=== PATIENT | female | born 1990 | race African-American/Black ===

== ENCOUNTER 2018-05-26 09:31 | Emergency (ER) | payer OTHER ==
[2018-05-26 09:39] VITALS: TEMP 98.5; BMI 36.1
--- NOTE | 2018-05-26 10:39 | PDOC ---
History of Present Illness - General Chief Complaint: Pain Stated Complaint: SPOTTING (16 WEEKS ) Time Seen by Provider: 05/26/18 10:14 History Source: Patient Exam Limitations: No Limitations - History of Present Illness Travel History: No Initial Comments: 05/26/18 10:42 28-year-old female presents to the emergency department with vaginal spotting upon wiping this morning after urinating. Patient with history of spontaneous miscarriage at 21 weeks 7 years ago. Patient states as far by Dr. Haywood then and has had normal ultrasounds vital signs but was recently diagnosed with the UTI currently on antibiotics for the past 3 days. Patient has no other complaints at this time including back pain, abdominal pain nausea , weakness or dizziness. Timing/Duration: reports: constant Aggravating Factors: improves with: None Alleviating Factors: improves with: None Past History - Travel Traveled outside of the country in the last 30 days: No - Past Medical History Allergies/Adverse Reactions: Allergies Allergy/AdvReac Type Severity Reaction Status Date / Time No Known Allergies Allergy Verified 05/26/18 09:35 Home Medications: Ambulatory Orders Albuterol Sulfate Inhaler - [Ventolin Hfa Inhaler -] 2 inh PO Q4H PRN 05/26/18 Fluticasone Propionate [Flovent Diskus] 110 mcg IH BID PRN 05/26/18 Insulin Lispro Protamin/Lispro [Humalog Mix 50-50 Kwikpen] 6 unit SQ AC Nitrofurantoin Monohyd/M-Cryst [Macrobid -] 100 mg PO BID 05/26/18 Asthma: Yes COPD: No Diabetes: Yes HTN: No - Suicide/Smoking/Psychosocial Hx Smoking History: Never smoked Patient Lives Alone: No Lives with/in: spouse/SO Review of Systems - Review of Systems Able to Perform ROS?: No Constitutional: No: Symptoms Reported HEENTM: No: Symptoms Reported Respiratory: No: Symptoms reported Cardiac (ROS): No: Symptoms Reported ABD/GI: No: Symptoms Reported : Yes: Discharge (vaginal bleeding) Integumentary: No: Symptoms Reported Neurological: No: Symptoms reported Endocrine: No: Symptoms Reported Hematologic/Lymphatic: No: Symptoms Reported *Physical Exam - Vital Signs Last Vital Signs Temp Pulse Resp BP Pulse Ox 98.5 F 107 H 16 149/96 100 05/26/18 09:35 05/26/18 10:25 05/26/18 09:35 05/26/18 10:25 05/26/18 09:35 - Physical Exam General Appearance: Yes: Nourished, Appropriately Dressed. No: Apparent Distress HEENT: positive: EOMI, RIANNA. negative: Pale Conjunctivae Neck: positive: Normal Thyroid, Supple Respiratory/Chest: positive: Lungs Clear, Normal Breath Sounds. negative: Respiratory Distress, Accessory Muscle Use Cardiovascular: positive: Regular Rhythm, Tachycardia (107 on pulse oximetry probe). negative: Murmur Female Pelvic Exam: positive: cervical os closed, vaginal bleeding (minimal brownish red/pink in vault and from closed os). negative: CMT Gastrointestinal/Abdominal: positive: Soft. negative: Tenderness Musculoskeletal: negative: CVA Tenderness Extremity: positive: Normal Capillary Refill Integumentary: positive: Normal Color, Warm, Moist Neurologic: positive: Motor Strength 5/5 (ambulatory) ED Treatment Course - LABORATORY CBC & Chemistry Diagram: 05/26/18 10:50 05/26/18 10:50 - RADIOLOGY Radiology Studies Ordered: Category Date Time Status US(SINGLE) [US] Stat Ultrasound 05/26/18 10:21 Ordered Medical Decision Making - Medical Decision Making 05/26/18 10:43 Patient with vaginal spotting since this morning. Patient with history of spontaneous miscarriage at 21 weeks. Patient exam with closed os and minimal blood noted in the vault. Patient concerning for miscarriage. Patient also with slightly elevated blood pressure and borderline tachycardia. Patient ordered for labs, ultrasound,and urine. 05/26/18 13:10 Laboratory Tests 05/26/18 10:50 Blood Type O POSITIVE Antibody Screen Negative 05/26/18 13:11 Laboratory Tests 05/26/18 05/26/18 05/26/18 10:50 10:50 10:50 WBC 9.0 Hgb 11.0 Hct 33.9 Plt Count 286 Neutrophils % 60.7 PT with INR 11.30 INR 1.00 Sodium Potassium Chloride Carbon Dioxide Anion Gap BUN Creatinine Creat Clearance w eGFR Random Glucose Calcium Total Bilirubin AST ALT Alkaline Phosphatase Total Protein Albumin Urine Ketones 1+ H Urine Blood 3+ H Urine Nitrite Negative Ur Leukocyte Esterase Negative Urine WBC (Auto) 1 Urine RBC (Auto) 10 05/26/18 10:50 WBC Hgb Hct Plt Count Neutrophils % PT with INR INR Sodium 135 L Potassium 4.0 Chloride 107 Carbon Dioxide 22 Anion Gap 6 L BUN 7 Creatinine 0.7 Creat Clearance w eGFR > 60 Random Glucose 147 H Calcium 9.2 Total Bilirubin 0.1 L AST 32 ALT 43 Alkaline Phosphatase 44 L Total Protein 6.8 Albumin 3.6 Urine Ketones Urine Blood Urine Nitrite Ur Leukocyte Esterase Urine WBC (Auto) Urine RBC (Auto) Ultrasound shows a single intrauterine gestation identified by ultrasound measurements of 16 weeks 4 days with a heart rate of 1 50 bpm. The fetus is invariable lie with an anterior placenta. Is a questionable heterogenous region of the placenta measuring 4.2 x 3.0 x 3.4 but this can be mimicked by uterine contraction which is observed by the sonograph for. Recommend clinical correlation and short-term monitoring. Patient will be discharged home *DC/Admit/Observation/Transfer Diagnosis at time of Disposition: Vaginal bleeding in - Discharge Dispostion Disposition: HOME Condition at time of disposition: Good - Referrals Referrals: Franco Stephens [Primary Care Provider] - Kaylynn Gandhi MD [Staff Physician] - - Patient Instructions Printed Discharge Instructions: DI for Vaginal Bleeding During Additional Instructions: At this time I recommend to follow-up with the RADIO F[facility]QUENCY TECHNICIAN and taking a copy of the ultrasound with you. May take Tylenol if you develop any cramping. Otherwise continue with your normal activity and may return to the ED any given time if your symptoms worsen. - Post Discharge Activity
[2018-05-26 11:04] LABS: BASO % 0.6 % (0-2.0); EOS % 4.2 % (0-4.5); HEMATOCRIT 33.9 % (32.4-45.2); LYMPH % 28.3 % (8-40); MCH 27.3 pg (25.7-33.7); MCHC 32.5 g/dl (32.0-36.0); MEAN PLT VOLUME 8.9 fl (7.5-11.1); MONO % 6.2 % (3.8-10.2); NEUT % 60.7 % (42.8-82.8); PLATELET COUNT 286 K/MM3 (134-434); RBC 4.03 M/mm3 (3.60-5.2); RDW 13.9 % (11.6-15.6)
[2018-05-26 11:17] LABS: PROTHROMBIN TIME (PATIENT) 11.3 SEC (9.7-13.0)
[2018-05-26 11:28] LABS: ALBUMIN 3.6 g/dl (3.4-5.0); ANION GAP 6 MMOL/L (8-16); BILIRUBIN,TOTAL 0.1 mg/dL (0.2-1.0); BLOOD UREA NITROGEN 7 mg/dL (7-18); CALCIUM 9.2 mg/dL (8.5-10.1); CHLORIDE 107 mmol/L (98-107); CO2 22 mmol/L (21-32); CREATININE 0.7 mg/dL (0.55-1.02); GLUCOSE,RANDOM 147 mg/dL (74-106); SGOT/AST 32 U/L (15-37); SGPT/ALT 43 U/L (12-78); SODIUM 135 mmol/L (136-145); TOT PROT 6.8 g/dl (6.4-8.2)
[2018-05-26 11:30] LABS: ALK PHOS 44 U/L (45-117)
[2018-05-26 11:40] LABS: URINE APPEARANCE CLEAR; URINE BILIRUBIN NEGATIVE (<2.0 mg/dL); URINE COLOR YELLOW; URINE GLUCOSE (UA) NEGATIVE (NEGATIVE); URINE KETONE 1+ (NEGATIVE); URINE LEUK ESTERASE NEGATIVE (NEGATIVE); URINE NITRITE NEGATIVE (NEGATIVE); URINE PROTEIN NEGATIVE (NEGATIVE); URINE UROBILINOGEN NEGATIVE mg/dL (0.2-1.0)
[2018-05-26 11:47] LABS: EPI CELLS RARE /HPF (FEW); URINE HYALINE CAST 2 /lpf; URINE MUCUS RARE
[2018-05-26 11:48] LABS: URINE BACTERIA FEW /hpf (NONE SEEN)
[2018-05-26 14:20] VITALS: BP 138/93; PULSE 85
--- NOTE | 2018-05-26 18:50 | EKG ---
Test Reason : Blood Pressure : / mmHG Vent. Rate : 098 BPM Atrial Rate : 098 BPM P-R Int : 148 ms QRS Dur : 080 ms QT Int : 358 ms P-R-T Axes : 049 016 015 degrees QTc Int : 457 ms POOR DATA QUALITY, INTERPRETATION MAY BE ADVERSELY AFFECTED NORMAL SINUS RHYTHM NORMAL ECG NO PREVIOUS ECGS AVAILABLE Confirmed by NANO OLIVARES MD ([id number]) on 05/26/2018 6:50:15 PM Referred By: Confirmed By:NANO OLIVARES MD
== END 2018-05-26 13:35 | disposition home or self-care (01) ==
LOC: JER 09:31
DX: O26.892 Other specified pregnancy related conditions, second trimester (principal); O46.92 Antepartum hemorrhage, unspecified, second trimester; O24.912 Unspecified diabetes mellitus in pregnancy, second trimester; Z3A.16 16 weeks gestation of pregnancy; Z79.4 Long term (current) use of insulin
CPT/HCPCS: 36415; 76801-TC; 80053; 81003; 81015; 85025; 85610; 86850; 86900; 86901; 87086; 93005; 93010; 99283-25

== ENCOUNTER 2018-07-30 20:02 | Emergency (ER) | payer OTHER ==
[2018-07-30 20:09] VITALS: BMI 32.4
--- NOTE | 2018-07-30 21:12 | PDOC ---
History of Present Illness - General Chief Complaint: Pain Stated Complaint: 25 WEEKS , PAIN Time Seen by Provider: 07/30/18 20:45 History Source: Patient Exam Limitations: No Limitations - History of Present Illness Initial Comments: 07/30/18 21:08 Pt is a 28yo f G2A1 25 weeks PMH of DM, asthma presenting to ED with complaints of L sided pain under the breast that started at 4pm today. Pt said she was taking a nap when she felt a sharp pain in the L chest followed by a burning in the throat to the stomach. Pt says pain is intermittent, only feels it when she lays down, takes in deep breaths, coughs or sneezes. She never had this kind of pain before. She denies fever, chills, cough, SOB, lightheadedness , calf pain/swelling, recent travel, recent surgeries. She went to L+D today and was cleared. She was told that she has a high risk due to her diabetes and blood pressure getting high, so she was placed on labetelol along with her current medication of metformin. Past History - Past Medical History Allergies/Adverse Reactions: Allergies Allergy/AdvReac Type Severity Reaction Status Date / Time No Known Allergies Allergy Verified 07/30/18 20:10 Home Medications: Ambulatory Orders Albuterol Sulfate Inhaler - [Ventolin Hfa Inhaler -] 2 inh PO Q4H PRN 05/26/18 Fluticasone Propionate [Flovent Diskus] 110 mcg IH BID PRN 05/26/18 Insulin Lispro Protamin/Lispro [Humalog Mix 50-50 Kwikpen] 18 unit SQ TID Labetalol HCl [Normodyne -] 200 mg PO DAILY 07/30/18 Anemia: Yes Asthma: Yes COPD: No Diabetes: Yes HTN: Yes - Suicide/Smoking/Psychosocial Hx Smoking History: Never smoked *Physical Exam - Vital Signs Last Vital Signs Temp Pulse Resp BP Pulse Ox 98.5 F 91 H 18 119/71 100 07/30/18 20:05 07/30/18 20:05 07/30/18 20:05 07/30/18 20:05 07/30/18 20:05 ED Treatment Course - LABORATORY CBC & Chemistry Diagram: 07/30/18 22:22 07/30/18 22:22 *DC/Admit/Observation/Transfer Diagnosis at time of Disposition: Chest pain Qualifiers: Chest pain type: unspecified Qualified Code(s): R07.9 - Chest pain, unspecified - Discharge Dispostion Disposition: HOME Condition at time of disposition: Good Decision to Admit order: No - Referrals Referrals: Franco Stephens [Primary Care Provider] - Kaylynn Gandhi MD [Staff Physician] - - Patient Instructions Printed Discharge Instructions: DI for Chest Pain, DI for Atypical Chest Pain Additional Instructions: You were seen here today for chest pain. Your tests were normal. You can take Tylenol for pain as directed. Please keep your appointment with Dr. Gandhi. I also advise you to see your primary care doctor as well. Come back to the emergency room if: pain gets worse, you have difficulty breathing, or if any new concerning symptom develops. Thank you - Post Discharge Activity
[2018-07-30] MEDS ORDERED: ACETAMINOPHEN 500 MG TABLET (FP) PO ONE (21:15)
[2018-07-30 22:31] LABS: EOS % 3.5 % (0-4.5); HEMATOCRIT 31.4 % (32.4-45.2); HEMOGLOBIN 10.4 GM/dL (10.7-15.3); LYMPH % 32.1 % (8-40); MCH 28.4 pg (25.7-33.7); MCHC 33.1 g/dl (32.0-36.0); MEAN CELL VOLUME 85.8 fl (80-96); MEAN PLT VOLUME 9.5 fl (7.5-11.1); MONO % 5.8 % (3.8-10.2); NEUT % 57.6 % (42.8-82.8); PLATELET COUNT 284 K/MM3 (134-434); RBC 3.66 M/mm3 (3.60-5.2); RDW 14.6 % (11.6-15.6); WHITE BLOOD COUNT 9.4 K/mm3 (4.0-10.0)
[2018-07-30 22:49] LABS: URINE APPEARANCE SLCLOUDY; URINE BILIRUBIN NEGATIVE (<2.0 mg/dL); URINE COLOR YELLOW; URINE GLUCOSE (UA) 1+ (NEGATIVE); URINE KETONE NEGATIVE (NEGATIVE); URINE LEUK ESTERASE NEGATIVE (NEGATIVE); URINE NITRITE NEGATIVE (NEGATIVE); URINE PROTEIN NEGATIVE (NEGATIVE); URINE UROBILINOGEN NEGATIVE mg/dL (0.2-1.0)
[2018-07-30] MEDS ORDERED: ACETAMINOPHEN 325 MG TABLET (FP) ONE (22:49)
[2018-07-30 22:57] VITALS: BP 115/68; PULSE 86; TEMP 98.1
[2018-07-30 22:57] LABS: ALBUMIN 3.2 g/dl (3.4-5.0); ALK PHOS 70 U/L (45-117); ANION GAP 8 MMOL/L (8-16); BILIRUBIN,TOTAL 0.1 mg/dL (0.2-1); BLOOD UREA NITROGEN 8 mg/dL (7-18); CALCIUM 9.2 mg/dL (8.5-10.1); CHLORIDE 108 mmol/L (98-107); CO2 22 mmol/L (21-32); CREATININE 0.6 mg/dL (0.55-1.3); GLUCOSE,RANDOM 78 mg/dL (74-106); MAGNESIUM 2.1 mg/dL (1.8-2.4); PHOSPHOROUS 5.4 mg/dL (2.5-4.9); POTASSIUM 4.1 mmol/L (3.5-5.1); SGOT/AST 42 U/L (15-37); SGPT/ALT 53 U/L (13-61); SODIUM 138 mmol/L (136-145); TOT PROT 6.3 g/dl (6.4-8.2)
--- NOTE | 2018-07-30 23:18 | PDOC ---
Attending Attestation - HPI HPI: 07/30/18 23:28 The patient is a year old female, A1, 25 weeks , with a significant past medical history of diabetes and asthma, who presents to the emergency department with intermittent pain under her left breast with lying flat, coughing, and taking deep breaths. She denies pain while at rest. She states she was told she was prehypertensive by Dr. Villa who started the patient on labetalol. She states she was sent to the ED from L&D after monitoring for further evaluation. She reports her first was a miscarriage in the second trimester secondary to "an infection in the sac". The patient denies shortness of breath, headache and dizziness. The patient denies fever, chills, nausea, vomit, diarrhea and constipation. The patient denies dysuria, frequency, urgency and hematuria. Allergies: NKDA - Physicial Exam PE: 07/30/18 23:29 GENERAL: Well-appearing, well-nourished. No apparent distress. HEENT: Normocephalic, atraumatic. PERRL, EOM intact. CARDIOVASCULAR: Normal S1, S2. Regular rate and rhythm. NECK No Bruits. No JVD. No CLAD. PULMONARY: Clear to auscultation bilaterally. ABDOMEN: Gravid. Soft, non-distended, non-tender. EXTREMITIES: Normal ROM in all four extremities. No gross deformities. SKIN: Warm, dry. No rash NEUROLOGICAL: No focal neurological deficits. - Medical Decision Making 07/30/18 23:29 Documentation prepared by Marisela Mancia, acting as medical territory manager for Kristy Romero MD <Marisela Mancia - Last Filed: 07/30/18 23:33> - Resident Resident Name: Ada Bergeron - ED Attending Attestation I have performed the following: I have examined & evaluated the patient, The case was reviewed & discussed with the resident, I agree w/resident's findings & plan, Exceptions are as noted - Medical Decision Making 07/30/18 23:35 28-year-old female who is 25 weeks , was sent down from L&D after she had monitoring. She was seen by Dr. Ayla Sosa and monitoring was unremarkable. Her urine is negative CBC and chemistries are unremarkable. The patient is normotensive and states she is taking her high blood pressure medications. Troponin was negative. EKG is normal sinus rhythm at 91 bpm, with a normal QTC. There is no evidence of right heart strain or ischemia Patient states that if she coughs or sneezes, she has some left sided anterior rib cage pain. Otherwise, she is asymptomatic 07/30/18 23:43 plan pt has an appt w Dr Villa on 08/10/18 <Kristy Romero - Last Filed: 07/30/18 23:43>
--- NOTE | 2018-07-31 16:15 | EKG ---
Test Reason : Blood Pressure : / mmHG Vent. Rate : 091 BPM Atrial Rate : 091 BPM P-R Int : 138 ms QRS Dur : 082 ms QT Int : 348 ms P-R-T Axes : 032 022 025 degrees QTc Int : 428 ms NORMAL SINUS RHYTHM NORMAL ECG WHEN COMPARED WITH ECG OF 26-MAY-2018 10:59, NO SIGNIFICANT CHANGE WAS FOUND Confirmed by MD MARY, SABINO ([id number]) on 07/31/2018 4:15:15 PM Referred By: Confirmed By:SABINO HERNANDEZ MD
== END 2018-07-31 01:00 | disposition home or self-care (01) ==
LOC: JER 20:02
DX: O26.892 Other specified pregnancy related conditions, second trimester (principal); R07.9 Chest pain, unspecified; O24.012 Pre-existing type 1 diabetes mellitus, in pregnancy, second trimester; E10.9 Type 1 diabetes mellitus without complications; Z79.4 Long term (current) use of insulin; O16.2 Unspecified maternal hypertension, second trimester; Z3A.25 25 weeks gestation of pregnancy; Z87.09 Personal history of other diseases of the respiratory system
CPT/HCPCS: 36415; 80053; 81003; 83735; 84100; 84484; 85025; 87086; 93005; 93010; 99284-25

== ENCOUNTER 2018-10-13 16:32 | Emergency (ER) | payer OTHER ==
[2018-10-13 16:41] VITALS: BMI 37.8
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
[2018-10-13] MEDS ORDERED: SODIUM CHLORIDE 0.9% 500 ML INFUS.BAG IV ONE (18:50)
[2018-10-13 20:43] VITALS: BP 143/92; PULSE 88; TEMP 98.6
== END 2018-10-13 21:20 | disposition home or self-care (01) ==
LOC: JER 16:32 → JERFT 16:32 → JER 21:20
DX: O26.893 Other specified pregnancy related conditions, third trimester (principal); O99.513 Diseases of the respiratory system complicating pregnancy, third trimester; J70.5 Respiratory conditions due to smoke inhalation; J45.909 Unspecified asthma, uncomplicated; O24.913 Unspecified diabetes mellitus in pregnancy, third trimester; Z79.4 Long term (current) use of insulin; O99.013 Anemia complicating pregnancy, third trimester; O16.3 Unspecified maternal hypertension, third trimester; Z3A.36 36 weeks gestation of pregnancy; X02.0XXA Exposure to flames in controlled fire in building or structure, initial encounter; Y93.89 Activity, other specified; Y92.038 Other place in apartment as the place of occurrence of the external cause; Y99.8 Other external cause status
CPT/HCPCS: 82375; 82962; 99281-25

== ENCOUNTER 2018-11-01 09:30 | Inpatient (IN) | payer OTHER ==
[2018-11-01 10:55] VITALS: BMI 38.5
--- NOTE | 2018-11-01 11:34 | HP ---
Admitting History and Physical - Admission Chief Complaint: 39 weeks gestation / Pre-gestational diabetes History of Present Illness: 28 yo @ 39 weeks gestation, with pre-gestational diabetes, on Insulin, admitted for cervidil induction. EDC : 11/08/18 History Source: Patient Limitations to Obtaining History: No Limitations - Past Medical History ...: Yes ...: 2 ...Para: 0 - Past Surgical History Past Surgical History: Yes: None - Smoking History Smoking history: Never smoked - Alcohol/Substance Use Hx Alcohol Use: No - Social History Usual Living Arrangement: Yes: Alone History of Recent Travel: No Home Medications - Allergies Allergies/Adverse Reactions: Allergies Allergy/AdvReac Type Severity Reaction Status Date / Time No Known Allergies Allergy Verified 10/03/18 16:03 - Home Medications Home Medications: Ambulatory Orders Albuterol Sulfate Inhaler - [Ventolin Hfa Inhaler -] 2 inh PO Q4H PRN 05/26/18 Fluticasone Propionate [Flovent Diskus] 110 mcg IH BID PRN 05/26/18 Labetalol HCl [Normodyne -] 200 mg PO DAILY 07/30/18 Ferrous Sulfate [Feosol] 325 mg PO BID 10/03/18 Pnv No.95/Ferrous Fum/Folic AC [ Vitamin Tablet] 1 each PO DAILY Insulin NPH Human Isophane [Humulin N] 10 unit SQ BID 11/01/18 Family Disease History - Family Disease History Family History: Unremarkable Review of Systems - Review of Systems Constitutional: reports: No Symptoms Eyes: reports: No Symptoms HENT: reports: No Symptoms Neck: reports: No Symptoms Cardiovascular: reports: No Symptoms Respiratory: reports: No Symptoms Gastrointestinal: reports: No Symptoms Genitourinary: reports: No Symptoms Breasts: reports: No Symptoms Reported Musculoskeletal: reports: No Symptoms Integumentary: reports: No Symptoms Neurological: reports: No Symptoms Endocrine: reports: No Symptoms Hematology/Lymphatic: reports: No Symptoms Psychiatric: reports: No Symptoms Pain Intensity: 0 Physical Examination Vital Signs: Vital Signs Temperature 97.6 F 11/01/18 11:00 Pulse Rate 84 11/01/18 11:00 Respiratory Rate 20 11/01/18 11:00 Blood Pressure 136/75 11/01/18 11:00 O2 Sat by Pulse Oximetry (%) Constitutional: Yes: Well Nourished Eyes: Yes: Conjunctiva Clear HENT: Yes: Atraumatic Neck: Yes: Supple Cardiovascular: Yes: Regular Rate and Rhythm Respiratory: Yes: Regular Gastrointestinal: Yes: Normal Bowel Sounds Musculoskeletal: Yes: WNL Neurological: Yes: Alert, Oriented ...Motor Strength: WNL Psychiatric: Yes: Alert, Oriented Problem List - Problems (1) 39 weeks gestation of Code(s): Z3A.39 - 39 WEEKS GESTATION OF (2) Gestational diabetes mellitus (GDM) affecting Code(s): O24.419 - GESTATIONAL DIABETES MELLITUS IN , UNSP CONTROL Assessment/Plan 39 weeks gestation Pre-Gestation diabetes Admit for cervidil induction
[2018-11-01 11:40] LABS: INR 0.94 (0.83-1.09); PROTHROMBIN TIME (PATIENT) 11.1 SEC (9.7-13.0)
[2018-11-01 11:43] LABS: ACTIVATED PTT 29.8 SECONDS (25.2-36.5)
[2018-11-01 11:51] LABS: BASO % 0.6 % (0-2.0); LYMPH % 37.8 % (8-40); MCH 29.1 pg (25.7-33.7); MCHC 33.3 g/dl (32.0-36.0); MEAN CELL VOLUME 87.3 fl (80-96); MEAN PLT VOLUME 10.3 fl (7.5-11.1); MONO % 5.5 % (3.8-10.2); NEUT % 53.1 % (42.8-82.8); PLATELET COUNT 196 K/MM3 (134-434); RBC 3.78 M/mm3 (3.60-5.2); RDW 15.4 % (11.6-15.6); WHITE BLOOD COUNT 6.7 K/mm3 (4.0-10.0)
[2018-11-01 11:57] LABS: ANION GAP 11 MMOL/L (8-16); BLOOD UREA NITROGEN 8 mg/dL (7-18); CALCIUM 8.8 mg/dL (8.5-10.1); CHLORIDE 107 mmol/L (98-107); CO2 22 mmol/L (21-32); CREATININE 0.8 mg/dL (0.55-1.3); GLUCOSE,RANDOM 88 mg/dL (74-106); POTASSIUM 3.8 mmol/L (3.5-5.1); SODIUM 141 mmol/L (136-145)
[2018-11-01] MEDS ORDERED: DINOPROSTONE 10 MG VAGINAL SUPPOSITORY VG ONE (15:29)
[2018-11-01] MEDS ORDERED: ELECTROLYTE-148 SOLN 1,000 ML IV SCH ×2 (15:30→16:45)
[2018-11-01] MEDS ORDERED: INSULIN REGULAR HUMAN 100 UNITS/ML *VIAL SQ ONE (21:41)
[2018-11-01] MEDS ORDERED: BUTORPHANOL TARTRATE 2 MG/ML VIAL IVPUSH PRN (21:46)
[2018-11-01] MEDS ORDERED: PROMETHAZINE HCL 25 MG/1 ML VIAL IVPUSH PRN (21:47)
[2018-11-02] MEDS: DEXTROSE 5%-LACTATED RINGERS 1,000 ML IV SCH (02:00)
[2018-11-02] MEDS ORDERED: INSULIN (NOVOLOG) ASPART 100 UNITS/ML 10ML VIAL SQ SCH (07:00)
[2018-11-02] MEDS ORDERED: OXYTOCIN 20 UNITS in 0.9% NS 20 UNIT/1,000 ML INFUS.BAG IV ONE (07:11)
[2018-11-02] MEDS ORDERED: LABETALOL HCL 200 MG TABLET (FP) ONE (07:33)
[2018-11-02] MEDS ORDERED: LABETALOL HCL 200 MG TABLET (FP) PO ONE (08:00)
[2018-11-02] MEDS: HUMULIN R U SQ SCH (08:00)
[2018-11-02] MEDS ORDERED: DINOPROSTONE 10 MG VAGINAL SUPPOSITORY VG ONE (08:15)
[2018-11-02] MEDS ORDERED: OXYTOCIN 30 UNITS in 0.9% NS 30 UNIT/500 ML INFUS.BAG IVPB SCH (22:45)
[2018-11-03] MEDS: DEXTROSE 5%-LACTATED RINGERS 1,000 ML IV SCH (04:00)
[2018-11-03] MEDS: HUMULIN N U SQ SCH ×2 (07:38→22:30)
[2018-11-03] MEDS: HUMULIN R U SQ SCH ×3 (07:38→22:32)
--- NOTE | 2018-11-03 11:46 | PN ---
Progress Note (short form) - Note Progress Note: Patient is lying comfortably in bed. She's status post Cervidil induction and is now on Pitocin augmentation. She denies any contractions pain. FHR : Reassuring Hobson : + regular contractions Ve : Exam unchanged A/P 39 weeks gestation Pre gestational diabetes PIH Diabetic diet for breakfast Continue Insulin and Labetalol Discussion with patient about mode of delivery. Patient wants to wait longer before proceeding to Continue close monitoring Problem List - Problems (1) 39 weeks gestation of Code(s): Z3A.39 - 39 WEEKS GESTATION OF (2) Gestational diabetes mellitus (GDM) affecting Code(s): O24.419 - GESTATIONAL DIABETES MELLITUS IN , UNSP CONTROL
--- NOTE | 2018-11-03 11:48 | PN ---
Progress Note (short form) - Note Progress Note: Patient evaluated, doing well. Exam unchanged A second cervidil placed Re-evaluate in 12 hours or before if indicated Problem List - Problems (1) 39 weeks gestation of Code(s): Z3A.39 - 39 WEEKS GESTATION OF (2) Gestational diabetes mellitus (GDM) affecting Code(s): O24.419 - GESTATIONAL DIABETES MELLITUS IN , UNSP CONTROL
[2018-11-03] MEDS ORDERED: LABETALOL HCL 200 MG TABLET (FP) ONE (11:49)
[2018-11-03] MEDS ORDERED: LABETALOL HCL 100 MG TABLET (FP) PO ONE (12:00)
[2018-11-03] MEDS ORDERED: valACYclovir HCL 500 MG TABLET (FP) PO ONE (12:00)
--- NOTE | 2018-11-03 13:07 | PN ---
Progress Note (short form) - Note Progress Note: Patient evaluated, doing well. She's on Pitocin augmentation. Exam unchanged FHR : No accelerations, no decelerations Decision made for Consent signed Anesthesia to see patient Problem List - Problems (1) 39 weeks gestation of Code(s): Z3A.39 - 39 WEEKS GESTATION OF (2) Gestational diabetes mellitus (GDM) affecting Code(s): O24.419 - GESTATIONAL DIABETES MELLITUS IN , UNSP CONTROL
[2018-11-03] MEDS ORDERED: morphine SULFATE/Preservative Free 0.5 MG/ML (1cc Syringe) ONE (14:38)
[2018-11-03] MEDS ORDERED: ePHEDrine SULFATE 50 MG/1 ML AMPULE ONE (14:38)
[2018-11-03] MEDS ORDERED: ceFAZolin SODIUM 1 GM VIAL ONE (14:50)
[2018-11-03] MEDS ORDERED: OXYTOCIN 10 UNITS/ML VIAL ONE ×2 (14:59→16:26)
[2018-11-03] MEDS ORDERED: MINERAL OIL/PETROLATUM,WHITE 3.5 GM TUBE ONE (15:06)
[2018-11-03] MEDS ORDERED: METHYLERGONOVINE MALEATE 0.2 MG/1 ML AMP IM PRN (15:43)
[2018-11-03] MEDS ORDERED: diphenhydrAMINE HCL 25 MG CAPSULE (FP) PO PRN (15:44)
[2018-11-03] MEDS ORDERED: OXYTOCIN 20 UNITS in 0.9% NS 20 UNIT/1,000 ML INFUS.BAG IV SCH (15:45)
[2018-11-03] MEDS ORDERED: ELECTROLYTE-148 SOLN 1,000 ML IV SCH (15:45)
--- NOTE | 2018-11-03 15:48 | OP ---
Operative Note - Note: Operative Date: 11/03/18 Pre-Operative Diagnosis: Failed medical induction Operation: Primary Low Transverse Findings: Baby in vertex position Post-Operative Diagnosis: Same as Pre-op Surgeon: Kaylynn [facility] Worker: Ariel Devlin Anesthesia: Spinal Specimens Removed: Placenta Estimated Blood Loss (mls): 600
[2018-11-03] MEDS ORDERED: ONDANSETRON 4 MG/2 ML VIAL IVPUSH PRN (15:59)
[2018-11-03] MEDS ORDERED: ACETAMINOPHEN 1000 MG/100 ML VIAL (NON FORMULARY) IVPB PRN (18:05)
[2018-11-03] MEDS: IBUPROFEN 800 MG/8 ML IJ IVPB PRN (18:10)
[2018-11-03] MEDS: FERROUS SO4 325 MG TABLET (FP) PO SCH (22:30)
[2018-11-04] MEDS: IBUPROFEN 800 MG/8 ML IJ IVPB PRN (06:29)
[2018-11-04 06:47] LABS: BASO % 0.4 % (0-2.0); EOS % 1.2 % (0-4.5); HEMATOCRIT 31.5 % (32.4-45.2); HEMOGLOBIN 10.7 GM/dL (10.7-15.3); LYMPH % 22.2 % (8-40); MCH 29.4 pg (25.7-33.7); MCHC 33.9 g/dl (32.0-36.0); MEAN CELL VOLUME 86.6 fl (80-96); MEAN PLT VOLUME 9.9 fl (7.5-11.1); MONO % 7.7 % (3.8-10.2); NEUT % 68.5 % (42.8-82.8); PLATELET COUNT 183 K/MM3 (134-434); RBC 3.64 M/mm3 (3.60-5.2); RDW 15.7 % (11.6-15.6); WHITE BLOOD COUNT 8.3 K/mm3 (4.0-10.0)
[2018-11-04] MEDS: HUMULIN N U SQ SCH ×2 (07:08→22:49)
[2018-11-04] MEDS: HUMULIN R U SQ SCH ×3 (07:08→17:00)
--- NOTE | 2018-11-04 09:06 | PN ---
Progress Note (short form) - Note Progress Note: Anesthesiology Post-op 28 y.o. woman POD#1 s/p C/S under spinal anesthesia. She is sitting-up, nursing infant in NAD. She has no complaints except for some pain associated with surgery and itching. VSS, with BP still slightly elevated. BP meds are ordered. No h/a, able to move legs, +urine in [place]. 28 y.o. woman with HTN and otherwise stable post-op course. I d/w pt. use of cold compresses to alleviate pruritis. She also has Benadryl ordered. Continue management as per primary team.
[2018-11-04] MEDS: PRENATAL VITAMINS W/ FOLIC ACID TABLET (FP) PO SCH (09:46)
[2018-11-04] MEDS: LABETALOL HCL 200 MG TABLET (FP) PO SCH (09:47)
[2018-11-04] MEDS: FERROUS SO4 325 MG TABLET (FP) PO SCH ×2 (09:47→22:46)
[2018-11-04] MEDS: oxyCODONE HCL 5 MG TABLET PO PRN ×3 (09:48→18:38)
[2018-11-04] MEDS: IBUPROFEN 600 MG TABLET (FP) PO PRN ×2 (14:34→18:38)
[2018-11-04] MEDS: SIMETHICONE 80 MG TAB.CHEW (FP) PO PRN ×2 (14:36→18:39)
[2018-11-04] MEDS ORDERED: BISACODYL 10 MG SUPP.RECT RC PRN (15:43)
--- NOTE | 2018-11-04 16:18 | PN ---
Post Note - Post Date of Delivery: 11/03/18 Post Day: 1 Vital Signs: Vital Signs - 24 hr 11/03/18 11/03/18 11/03/18 16:30 16:45 17:00 Temperature Pulse Rate 74 87 82 Respiratory 20 20 22 H Rate Blood Pressure 130/66 133/54 L 143/79 O2 Sat by Pulse 100 100 100 Oximetry (%) 11/03/18 11/03/18 11/03/18 17:35 18:00 21:00 Temperature 97.3 F L 98.7 F Pulse Rate 83 77 Respiratory 18 20 18 Rate Blood Pressure 140/86 140/87 O2 Sat by Pulse Oximetry (%) 11/04/18 11/04/18 11/04/18 02:00 06:00 07:00 Temperature 99.3 F 99.3 F Pulse Rate 90 100 H Respiratory 18 18 18 Rate Blood Pressure 133/77 137/82 O2 Sat by Pulse Oximetry (%) 11/04/18 11/04/18 11/04/18 08:00 09:00 10:00 Temperature 98.7 F Pulse Rate 94 H Respiratory 18 18 18 Rate Blood Pressure 143/89 O2 Sat by Pulse Oximetry (%) 11/04/18 11/04/18 11/04/18 11:00 12:00 13:00 Temperature Pulse Rate Respiratory 18 18 18 Rate Blood Pressure O2 Sat by Pulse Oximetry (%) 11/04/18 14:00 Temperature 98.1 F Pulse Rate 96 H Respiratory 18 Rate Blood Pressure 127/84 O2 Sat by Pulse Oximetry (%) Labs: Laboratory Results - last 24 hr 11/03/18 11/03/18 11/03/18 16:20 18:32 22:28 WBC RBC Hgb Hct MCV MCH MCHC RDW Plt Count MPV Absolute Neuts (auto) Neutrophils % Lymphocytes % Monocytes % Eosinophils % Basophils % Nucleated RBC % POC Glucometer 55 94 85 11/04/18 11/04/18 11/04/18 02:49 05:15 06:21 WBC 8.3 RBC 3.64 Hgb 10.7 Hct 31.5 L MCV 86.6 MCH 29.4 MCHC 33.9 RDW 15.7 H Plt Count 183 MPV 9.9 Absolute Neuts (auto) 5.7 Neutrophils % 68.5 D Lymphocytes % 22.2 D Monocytes % 7.7 Eosinophils % 1.2 Basophils % 0.4 Nucleated RBC % 0 POC Glucometer 63 68 11/04/18 11/04/18 10:07 14:50 WBC RBC Hgb Hct MCV MCH MCHC RDW Plt Count MPV Absolute Neuts (auto) Neutrophils % Lymphocytes % Monocytes % Eosinophils % Basophils % Nucleated RBC % POC Glucometer 64 75 - Subjective Subjective: No Complaints - Objective Afebrile: No Breast: Not engorged Abdomen: Soft, Non-tender Uterus: Fundus firm Vagina: Scant lochia Extremities: Non-tender - Assessment/Plan (1) delivery delivered Assessment: Other (POD1 Stable) Plan: Routine Care
[2018-11-05] MEDS: oxyCODONE HCL 5 MG TABLET PO PRN ×4 (03:23→21:22)
[2018-11-05] MEDS: HUMULIN R U SQ SCH ×2 (07:00→11:29)
[2018-11-05] MEDS: HUMULIN N U SQ SCH (07:05)
[2018-11-05] MEDS ORDERED: ACETAMINOPHEN 325 MG TABLET (FP) PO PRN (08:12)
[2018-11-05] MEDS: IBUPROFEN 600 MG TABLET (FP) PO PRN ×3 (08:21→21:21)
[2018-11-05] MEDS: SIMETHICONE 80 MG TAB.CHEW (FP) PO PRN ×2 (08:25→15:03)
[2018-11-05] MEDS: FERROUS SO4 325 MG TABLET (FP) PO SCH ×2 (09:05→21:19)
[2018-11-05] MEDS: PRENATAL VITAMINS W/ FOLIC ACID TABLET (FP) PO SCH (09:05)
[2018-11-05] MEDS: LABETALOL HCL 200 MG TABLET (FP) PO SCH (09:06)
--- NOTE | 2018-11-05 10:40 | PN ---
Post Note - Post Date of Delivery: 11/03/18 Post Day: 2 Vital Signs: Vital Signs - 24 hr 11/04/18 11/04/18 11/04/18 11:00 12:00 13:00 Temperature Pulse Rate Respiratory 18 18 18 Rate Blood Pressure 11/04/18 11/04/18 11/04/18 14:00 15:00 16:00 Temperature 98.1 F Pulse Rate 96 H Respiratory 18 20 20 Rate Blood Pressure 127/84 11/04/18 11/04/18 11/04/18 17:00 18:00 18:20 Temperature 98.1 F Pulse Rate 96 H Respiratory 18 20 20 Rate Blood Pressure 139/88 11/04/18 11/05/18 11/05/18 21:00 02:00 06:00 Temperature 98.1 F Pulse Rate 87 84 91 H Respiratory 18 18 18 Rate Blood Pressure 137/77 140/73 136/81 11/05/18 08:45 Temperature 99.2 F Pulse Rate 89 Respiratory 20 Rate Blood Pressure 141/86 Labs: Laboratory Results - last 24 hr 11/04/18 11/04/18 11/04/18 14:50 18:08 22:42 POC Glucometer 75 129 95 11/05/18 11/05/18 11/05/18 02:23 06:17 10:15 POC Glucometer 71 95 141 - Subjective Subjective: No Complaints, Other (Pt examined sitting in chair) - Objective Afebrile: Yes Breast: Not engorged Abdomen: Soft, Non-tender Uterus: Fundus firm Vagina: Scant lochia Extremities: Non-tender - Assessment/Plan (1) delivery delivered Assessment: Other (POD 2 stable Glucose levels normal) Plan: Routine Care
[2018-11-06 08:47] LABS: BASO % 0.4 % (0-2.0); EOS % 3.6 % (0-4.5); HEMATOCRIT 27.8 % (32.4-45.2); HEMOGLOBIN 9.4 GM/dL (10.7-15.3); MCH 29.7 pg (25.7-33.7); MEAN CELL VOLUME 87.4 fl (80-96); MEAN PLT VOLUME 9.9 fl (7.5-11.1); PLATELET COUNT 194 K/MM3 (134-434); RBC 3.18 M/mm3 (3.60-5.2); RDW 15.4 % (11.6-15.6); WHITE BLOOD COUNT 7.7 K/mm3 (4.0-10.0)
[2018-11-06] MEDS: oxyCODONE HCL 5 MG TABLET PO PRN ×3 (08:53→23:30)
[2018-11-06] MEDS: IBUPROFEN 600 MG TABLET (FP) PO PRN ×3 (08:54→23:30)
[2018-11-06] MEDS: LABETALOL HCL 200 MG TABLET (FP) PO SCH (09:00)
[2018-11-06] MEDS: FERROUS SO4 325 MG TABLET (FP) PO SCH ×2 (09:00→22:01)
[2018-11-06] MEDS: PRENATAL VITAMINS W/ FOLIC ACID TABLET (FP) PO SCH (09:00)
--- NOTE | 2018-11-06 09:47 | OP ---
DATE OF OPERATION: 11/03/2018 PREOPERATIVE DIAGNOSIS: Failed medical induction. POSTOPERATIVE DIAGNOSIS: Failed medical induction. PROCEDURE: Primary low transverse section. SURGEON: Kaylynn Gandhi MD CONTENT EDITOR: RUPERTO Devlin ANESTHESIA: Spinal. COMPLICATIONS: None. ESTIMATED BLOOD LOSS: 600 mL. PATHOLOGY: Placenta. DESCRIPTION OF PROCEDURE: The patient was taken to the operating room where spinal anesthesia was administered. The patient was then prepped and draped in proper sterile fashion. A Pfannenstiel skin incision was made and carried down to the underlying layer of fascia. The fascia was incised in the midline and extended laterally. The superior aspect of the fascial incision was then grasped with a Gustavo clamp, elevated, and the rectus muscle dissected off bluntly. Attention was then turned to the inferior aspect of the fascial incision, which in a similar fashion was then grasped with a Gustavo clamp, elevated, and the rectus muscle dissected off bluntly. The rectus muscle was then in the midline. The peritoneum was identified and entered sharply with the Metzenbaum scissors. This incision was extended superiorly and inferiorly with good visualization of the bladder. Then the vesicouterine peritoneum was then grabbed with a pickup and entered sharply with the Metzenbaum scissors. This incision was extended laterally and a bladder flap created digitally. The bladder blade was inserted. The lower uterine segment was incised with a 10 blade. The incision was extended laterally and the head delivered atraumatically. Nose and mouth were suctioned and the cord clamped and cut. The infant was handed to the waiting chief of anesthesiology. The placenta was then removed manually. The uterus was exteriorized and cleared of all clots and debris. The uterine incision was repaired using 0 Biosyn in a running, locked fashion. The 2nd layer of the same suture was used as a means to provide excellent hemostasis. Then the pelvis was completely irrigated. The uterus was returned to the abdomen. The peritoneum was closed using 2-0 Biosyn. The fascia was reapproximated using 0 Vicryl in a running fashion, and the skin was closed in a subcuticular fashion using 3-0 Vicryl. The patient tolerated the procedure well. The patient was then taken to PACU in stable condition. Alice RASHEED/[id number]
--- NOTE | 2018-11-06 10:53 | PN ---
Post Progress Note - Subjective Subjective: 28 yo Para 1 status post primary , seen and evaluated. She c/o swollen feet. She denies any headache, blurry vision nor epigastric pain. Post Day: 3 Type of Delivery: Primary C/S Vital Signs: Vital Signs Temperature 98.4 F 11/06/18 06:00 Pulse Rate 83 11/06/18 06:00 Respiratory Rate 20 11/06/18 06:00 Blood Pressure 139/68 11/06/18 06:00 O2 Sat by Pulse Oximetry (%) 100 11/03/18 17:00 Uterus: Yes: Fundus Firm Incision: Yes: Other (Steri strips in place) Lochia: Yes: Rubra Lochia, amount: Small Activity: Ambulating - Labs Labs: CBC WBC 7.7 K/mm3 (4.0-10.0) 11/06/18 08:00 RBC 3.18 M/mm3 (3.60-5.2) L 11/06/18 08:00 Hgb 9.4 GM/dL (10.7-15.3) L 11/06/18 08:00 Hct 27.8 % (32.4-45.2) L 11/06/18 08:00 MCV 87.4 fl (80-96) 11/06/18 08:00 MCH 29.7 pg (25.7-33.7) 11/06/18 08:00 MCHC 34.0 g/dl (32.0-36.0) 11/06/18 08:00 RDW 15.4 % (11.6-15.6) 11/06/18 08:00 Plt Count 194 K/MM3 (134-434) 11/06/18 08:00 MPV 9.9 fl (7.5-11.1) 11/06/18 08:00 Absolute Neuts (auto) 4.2 K/mm3 (1.5-8.0) 11/06/18 08:00 Neutrophils % 55.0 % (42.8-82.8) 11/06/18 08:00 Lymphocytes % 33.0 % (8-40) D 11/06/18 08:00 Monocytes % 8.0 % (3.8-10.2) 11/06/18 08:00 Eosinophils % 3.6 % (0-4.5) D 11/06/18 08:00 Basophils % 0.4 % (0-2.0) 11/06/18 08:00 Nucleated RBC % 0 % (0-0) 11/06/18 08:00 Problem List - Problems (1) 39 weeks gestation of Code(s): Z3A.39 - 39 WEEKS GESTATION OF (2) Gestational diabetes mellitus (GDM) affecting Code(s): O24.419 - GESTATIONAL DIABETES MELLITUS IN , UNSP CONTROL Assessment/Plan Status post delivery Swollen leg Continue Labetalol Discontinue insulin as per president practicing urologist
[2018-11-06] MEDS: SIMETHICONE 80 MG TAB.CHEW (FP) PO PRN ×2 (17:18→23:31)
--- NOTE | 2018-11-07 05:51 | DS ---
Physical Exam-DIRECTOR DIGITAL ANALYTICS Vital Signs: Vital Signs Temperature 98.7 F 11/07/18 02:00 Pulse Rate 77 11/07/18 02:00 Respiratory Rate 20 11/07/18 02:00 Blood Pressure 123/77 11/07/18 02:00 O2 Sat by Pulse Oximetry (%) 100 11/03/18 17:00 Constitutional: Yes: Well Nourished, No Distress Neck: Yes: WNL Cardiovascular: Yes: WNL Respiratory: Yes: WNL ....Post : Yes: Uterus firm, Uterus non-tender Breast(s): Yes: WNL Musculoskeletal: Yes: WNL Edema: Yes Edema: LLE: 2+, RLE: 2+ Neurological: Yes: WNL, Alert, Oriented Labs: CBC, BMP 11/06/18 08:00 11/01/18 10:50 Delivery - Delivery Section: Low Flap Transverse Type of Anesthesia: Spinal Episiotomy/Laceration: None EBL (cc): 600 Delivery, Single - Stages of Labor Date of Delivery: 11/03/18 Time of Delivery: 15:03 Time Placenta Delivered: 15:04 - Condition of Research Associate Quality Control Qc/Employee Counselor Present: Yes Name: Corazon Clarke Infant Gender: Female Weight: 8 lb 2 oz Position: Right, OT Total Hours ROM (Hrs/Mins): 0hrs 2min - 1 Minute Total Score: 9 5 Minutes Total Score: 9 - Feeding Plan Initial Plan: Elected not to breastfeed exclusively throughout hospitalization Discharge Summary Reason For Visit: LABOR Current Active Problems 39 weeks gestation of (Acute) delivery delivered (Acute) Gestational diabetes mellitus (GDM) affecting (Acute) Procedures: Principal: Primary Section Condition: Good - Instructions Diet, Activity, Other Instructions: Physical activity Resume your normal everyday activity as tolerated no heavy lifting or exercise until seen by your surgeon. You may walk unlimited nishi of and climb stairs. You may resume driving the car when you feel safe and comfortable behind the wheel. No sexual activity as instructed. Wound care If you have a bandage, leave it on, and keep dry for 48-72 hours. After that time discard the outer bandage. If they are tapes on the skin under the out of bandage leave them in place. They will peel off in the next 7 to 10 days. Do Not Peel them off. You may shower the day after surgery. If there are tapes present on the skin, you may shower over them. Diet There are no dietary restrictions. Eat healthy, high-fiber foods. Drink 6 to 8 glasses of liquid each day. This will assist in keeping your bowels are regular. Pain management You may take Tylenol or acetaminophen or Ibuprofen (for example, Motrin, Advil etc.) from my pain prescription medication is ordered should be taken as prescribed for moderate to severe pain. Call MD for any of the following: Severe pain not relieved by medication Fever of 101 or higher Excessive bleeding or drainage on dressing Inability to urinate Referrals: Kaylynn Gandhi MD [Staff Physician] - Disposition: HOME - Home Medications Comprehensive Discharge Medication List: Ambulatory Orders Albuterol Sulfate Inhaler - [Ventolin Hfa Inhaler -] 2 inh PO Q4H PRN 05/26/18 Fluticasone Propionate [Flovent Diskus] 110 mcg IH BID PRN 05/26/18 Labetalol HCl [Normodyne -] 200 mg PO DAILY 07/30/18 Ferrous Sulfate [Feosol] 325 mg PO BID 10/03/18 Pnv No.95/Ferrous Fum/Folic AC [ Vitamin Tablet] 1 each PO DAILY Insulin NPH Human Isophane [Humulin N] 10 unit SQ BID 11/01/18
[2018-11-07 06:17] VITALS: PULSE 86
[2018-11-07] MEDS: IBUPROFEN 600 MG TABLET (FP) PO PRN ×2 (07:40→14:24)
[2018-11-07] MEDS: oxyCODONE HCL 5 MG TABLET PO PRN ×2 (07:41→14:25)
[2018-11-07] MEDS: SIMETHICONE 80 MG TAB.CHEW (FP) PO PRN ×2 (07:41→14:25)
[2018-11-07] MEDS: PRENATAL VITAMINS W/ FOLIC ACID TABLET (FP) PO SCH (10:22)
[2018-11-07] MEDS: LABETALOL HCL 200 MG TABLET (FP) PO SCH (10:23)
[2018-11-07] MEDS: FERROUS SO4 325 MG TABLET (FP) PO SCH (10:23)
[2018-11-07 14:06] VITALS: BP 126/83; TEMP 98.8
--- NOTE | 2018-11-13 15:01 | PATH ---
Surgical Pathology Report Patient Name: SERGIO NG [facility]. Rec. #: [id number] /Age/Gender: 1990 (Age: 28) / F Account: [id number] Location: [facility] OBS/TEAM LEADER/RESEARCH PSYCHOLOGIST Taken: 11/03/2018 Received: 11/05/2018 Reported: 11/13/2018 Physicians: Kaylynn Gandhi M.D. Specimen(s) Received PLACENTA Clinical History , history of asthma, IDDM, HSV, hypertension, carpal tunnel Final Diagnosis PLACENTA, SECTION: 570 G THIRD TRIMESTER PLACENTA WITH TRIVASCULAR UMBILICAL CORD AND UNREMARKABLE PLACENTAL MEMBRANES. Electronically Signed Janell Lopez M.D. Gross Description The specimen is received fresh labeled placenta and is a 570 gram, 21.0 x 14.0 x 2.4 cm. placenta with attached membranes and umbilical cord. The attached membranes are marquez, translucent with focal opacities and insert marginally. The umbilical cord measures 38 cm. in length and averages 1.2 cm. in diameter. The cord inserts eccentrically, 3.5 cm. to the nearest margin. No true knots or strictures are identified. Cut surface of the umbilical cord reveals 3 vessels. The surface is yin-blue with minimal fibrin deposition and appropriate caliber vessels. The maternal surface is red-brown with focal defects. Sectioning reveals red-brown, spongy parenchyma. No lesions are identified. Matlab Developer sections are submitted in three cassettes as follows: 1- membrane rolls and umbilical cord; 2-3- full thickness sections of placenta. 11/12/201811/12/2018
== END 2018-11-07 16:25 | disposition home or self-care (01) | DRG 540 ==
LOC: JLDR 09:30 → J3W 11-03 17:30
PROVIDERS: ADMIT Obstetrics & Gynecology; ATTEND Obstetrics & Gynecology
PROC: 3E0P7VZ Introduction of Hormone into Female Reproductive, Via Natural or Artificial Opening (ICD-10-PCS; 2018-11-01)
PROC: 10D00Z1 Extraction of Products of Conception, Low, Open Approach (ICD-10-PCS; principal; 2018-11-03)
DX: O99.89 Other specified diseases and conditions complicating pregnancy, childbirth and the puerperium (principal); O13.3 Gestational [pregnancy-induced] hypertension without significant proteinuria, third trimester; R73.03 Prediabetes; O61.0 Failed medical induction of labor; Z79.4 Long term (current) use of insulin; Z37.0 Single live birth; Z3A.39 39 weeks gestation of pregnancy
CPT/HCPCS: 36415; 80048; 82962; 85025; 85610; 85730; 86593; 86850; 86900; 86901; 88307-TC

== ENCOUNTER 2021-04-13 19:21 | Emergency (ER) | payer OTHER ==
[2021-04-13 19:32] VITALS: BP 165/98; PULSE 100; TEMP 98.2; BMI 33.2
[2021-04-13] MEDS ORDERED: KETOROLAC TROMETHAMINE 30 MG/1 ML VIAL IM ONE (20:13)
[2021-04-13] MEDS ORDERED: KETOROLAC TROMETHAMINE 30 MG/1 ML VIAL ONE (20:26)
== END 2021-04-13 20:55 | disposition home or self-care (01) ==
LOC: JER 19:21
PROC: 3E0233Z Introduction of Anti-inflammatory into Muscle, Percutaneous Approach (ICD-10-PCS; principal; 2021-04-13)
DX: S83.92XA Sprain of unspecified site of left knee, initial encounter (principal)
CPT/HCPCS: 73562-TC-LT-FY; 99284-25

== ENCOUNTER 2021-07-02 06:06 | Day surgery (SDC) | payer OTHER ==
[2021-07-02 07:03] VITALS: BMI 33.5
[2021-07-02] MEDS ORDERED: BUPIVACAINE HCL/PF 0.5% (5MG/ML) 10 ML VIAL ONE (07:19)
[2021-07-02] MEDS ORDERED: MIDAZOLAM HCL 2 MG/2 ML SINGLE DOSE VIAL ONE ×2 (07:19→08:03)
[2021-07-02] MEDS ORDERED: BUPIVACAINE LIPOSOME/PF (EXPAREL) 266 MG/20 ML VIAL ONE (07:19)
[2021-07-02] MEDS ORDERED: SODIUM CHLORIDE 0.9% P/F 10 ML VIAL IJ ONE (07:19)
[2021-07-02] MEDS ORDERED: BUPIVACAINE HCL 50 ML ONE (07:47)
[2021-07-02] MEDS ORDERED: PROPOFOL 20 ML ONE ×4 (07:49→08:02)
[2021-07-02] MEDS ORDERED: SUCCINYLCHOLINE CHLORIDE 200 MG/10 ML SYRINGE ONE (07:49)
[2021-07-02] MEDS ORDERED: ceFAZolin SODIUM 1 GM VIAL ONE (07:59)
[2021-07-02] MEDS ORDERED: KETOROLAC TROMETHAMINE 30 MG/1 ML VIAL ONE (07:59)
[2021-07-02] MEDS ORDERED: ONDANSETRON 4 MG/2 ML VIAL ONE (07:59)
[2021-07-02] MEDS ORDERED: DEXAMETHASONE SOD PHOSPHATE 4 MG/1 ML VIAL ONE (07:59)
[2021-07-02] MEDS ORDERED: TRANEXAMIC ACID 1000 MG/10 ML VIAL ONE (09:31)
[2021-07-02] MEDS ORDERED: ONDANSETRON 4 MG/2 ML VIAL IVPUSH PRN (10:09)
[2021-07-02] MEDS ORDERED: oxyCODONE HCL 5 MG TABLET PO PRN ×2 (10:09)
[2021-07-02] MEDS ORDERED: PROMETHAZINE HCL 25 MG/1 ML VIAL IVPUSH PRN (10:09)
[2021-07-02 12:10] VITALS: TEMP 98.3
[2021-07-02 13:04] VITALS: BP 116/78; PULSE 64
== END 2021-07-02 17:47 | disposition home or self-care (01) ==
LOC: FASU 06:06
PROVIDERS: ATTEND Orthopaedic Surgery Sports Medicine
PROC: 0MRP47Z Replacement of Left Knee Bursa and Ligament with Autologous Tissue Substitute, Percutaneous Endoscopic Approach (ICD-10-PCS; principal; 2021-07-02 08:25)
PROC: 0SBD4ZZ Excision of Left Knee Joint, Percutaneous Endoscopic Approach (ICD-10-PCS; 2021-07-02 08:25)
DX: S83.512A Sprain of anterior cruciate ligament of left knee, initial encounter (principal); S83.242A Other tear of medial meniscus, current injury, left knee, initial encounter; X58.XXXA Exposure to other specified factors, initial encounter; Y93.9 Activity, unspecified; Y92.9 Unspecified place or not applicable
CPT/HCPCS: 29881; 29888; C1713; 73560-TC-LT-FY; 81025; 82962; 94760

== ENCOUNTER 2021-07-10 23:08 | Emergency (ER) | payer OTHER ==
[2021-07-10 23:18] VITALS: TEMP 98.3; BMI 33.2
[2021-07-11] MEDS ORDERED: MINERAL OIL ENEMA 133 ML ENEMA PR ONE (02:56)
[2021-07-11] MEDS ORDERED: ACETAMINOPHEN 500 MG TABLET (FP) PO ONE (02:56)
[2021-07-11] MEDS ORDERED: ACETAMINOPHEN 325 MG TABLET (FP) ONE (03:08)
[2021-07-11] MEDS ORDERED: POLYETHYLENE GLYCOL (HEALTHYLAX) 3350 17 GM PACKET PO SCH ×2 (03:19→10:00)
[2021-07-11 03:43] LABS: BASO % 0.5 % (0-2.0); EOS % 0.1 % (0-4.5); HEMOGLOBIN 11.3 GM/dL (10.7-15.3); LYMPH % 5.2 % (8-40); MCHC 33.2 g/dl (32.0-36.0); MEAN CELL VOLUME 84.4 fl (80-96); MEAN PLT VOLUME 8.1 fl (7.5-11.1); MONO % 6.7 % (3.8-10.2); NEUT % 87.5 % (42.8-82.8); PLATELET COUNT 501 10^3/uL (134-434); RBC 4.02 M/mm3 (3.60-5.2); RDW 13.3 % (11.6-15.6); WHITE BLOOD COUNT 16.4 K/mm3 (4.0-10.0)
[2021-07-11 04:04] LABS: CALCIUM 9.8 mg/dL (8.5-10.1)
[2021-07-11 04:05] LABS: ALBUMIN 3.7 g/dl (3.4-5.0); BLOOD UREA NITROGEN 11.9 mg/dL (7-18)
[2021-07-11] MEDS ORDERED: ONDANSETRON 4 MG/2 ML VIAL IVPB ONE (04:07)
[2021-07-11] MEDS ORDERED: KETOROLAC TROMETHAMINE 15 MG/ML VIAL IVPUSH ONE (04:07)
[2021-07-11 04:08] LABS: CREATININE 0.8 mg/dL (0.55-1.3)
[2021-07-11 04:10] LABS: BILIRUBIN,TOTAL 0.4 mg/dL (0.2-1); TOT PROT 7.9 g/dl (6.4-8.2)
[2021-07-11] MEDS ORDERED: KETOROLAC TROMETHAMINE 15 MG/ML VIAL ONE (04:19)
[2021-07-11] MEDS ORDERED: ONDANSETRON 4 MG/2 ML VIAL ONE (04:19)
[2021-07-11 05:52] LABS: URINE APPEARANCE CLEAR; URINE BILIRUBIN NEGATIVE (NEGATIVE); URINE COLOR YELLOW; URINE GLUCOSE (UA) TRACE (NEGATIVE); URINE KETONE 1+ (NEGATIVE); URINE LEUK ESTERASE NEGATIVE (NEGATIVE); URINE NITRITE NEGATIVE (NEGATIVE); URINE PROTEIN NEGATIVE (NEGATIVE); URINE UROBILINOGEN 0.2 mg/dL (0.2-1.0)
[2021-07-11 06:17] VITALS: BP 139/71; PULSE 84
== END 2021-07-11 06:21 | disposition home or self-care (01) ==
LOC: JER 23:08
PROC: 3E0333Z Introduction of Anti-inflammatory into Peripheral Vein, Percutaneous Approach (ICD-10-PCS; principal; 2021-07-10)
PROC: 3E033GC Introduction of Other Therapeutic Substance into Peripheral Vein, Percutaneous Approach (ICD-10-PCS; 2021-07-10)
DX: R10.9 Unspecified abdominal pain (principal)
CPT/HCPCS: 36415; 74177-TC; 80053; 81003; 82962; 83605; 84703; 85025; 87086; 99285-25; Q9967

== ENCOUNTER 2022-09-09 00:27 | Emergency (ER) | payer OTHER ==
[2022-09-09 00:56] VITALS: BP 147/109; PULSE 98; RESP 20; TEMP 98.6; BMI 33.9
[2022-09-09 04:01] LABS: BASO % 0.5 % (0-2.0); EOS % 1.2 % (0-4.5); HEMATOCRIT 36.3 % (32.4-45.2); HEMOGLOBIN 11.8 GM/dL (10.7-15.3); LYMPH % 45.1 % (8-40); MCHC 32.6 g/dl (32.0-36.0); MEAN CELL VOLUME 85.7 fl (80-96); MONO % 5.4 % (3.8-10.2); NEUT % 47.8 % (42.8-82.8); PLATELET COUNT 445 10^3/uL (134-434); RBC 4.23 M/mm3 (3.60-5.2); RDW 13.2 % (11.6-15.6); WHITE BLOOD COUNT 11.2 K/mm3 (4.0-10.0)
[2022-09-09 04:17] LABS: BLOOD UREA NITROGEN 10.1 mg/dL (7-18); CALCIUM 9.7 mg/dL (8.5-10.1)
[2022-09-09 04:21] LABS: CREATININE 0.9 mg/dL (0.55-1.3); TOT PROT 7.6 g/dl (6.4-8.2)
[2022-09-09 04:23] LABS: BILIRUBIN,TOTAL 0.4 mg/dL (0.2-1)
== END 2022-09-09 06:51 | disposition home or self-care (01) ==
LOC: JER 00:27
DX: R07.9 Chest pain, unspecified (principal)
CPT/HCPCS: 36415; 71046-TC-FY; 80053; 84484; 85025; 93005; 93010; 99285-25

== ENCOUNTER 2024-05-30 22:48 | Emergency (ER) | payer OTHER ==
[2024-05-30 22:54] VITALS: PULSE 85; RESP 20; TEMP 98.8; BMI 35.7
[2024-05-30] MEDS: LIDOCAINE PATCH REMOVAL MC SCH (23:52)
[2024-05-30] MEDS ORDERED: LIDOCAINE 4% PATCH TP ONE (23:53)
[2024-05-30] MEDS: LIDOCAINE 4% PATCH TP ONE (23:54)
[2024-05-31] MEDS ORDERED: METHOCARBAMOL 500 MG TABLET ONE (00:11)
[2024-05-31] MEDS ORDERED: KETOROLAC TROMETHAMINE 30 MG/1 ML VIAL ONE (00:11)
[2024-05-31] MEDS: METHOCARBAMOL 500 MG TABLET PO ONE (00:19)
[2024-05-31] MEDS: KETOROLAC TROMETHAMINE 30 MG/1 ML VIAL IM ONE (00:19)
[2024-05-31 01:16] VITALS: BP 160/91
[2024-05-31] MEDS ORDERED: LIDOCAINE PATCH REMOVAL MC ONE (12:00)
== END 2024-05-31 01:29 | disposition home or self-care (01) ==
LOC: JER 22:48
PROC: 3E0133Z Introduction of Anti-inflammatory into Subcutaneous Tissue, Percutaneous Approach (ICD-10-PCS; principal; 2024-05-31)
DX: M54.9 Dorsalgia, unspecified (principal); M25.551 Pain in right hip
CPT/HCPCS: 99284-25

== ENCOUNTER 2025-04-07 23:21 | Emergency (ER) | payer OTHER ==
[2025-04-07 23:32] VITALS: BP 128/90; PULSE 89; RESP 18; TEMP 99.2; BMI 34.0
[2025-04-08] MEDS ORDERED: ACETAMINOPHEN INJECTION 100 ML ONE (00:35)
[2025-04-08] MEDS: ACETAMINOPHEN 1000 MG/100 ML BAG IVPB ONE (01:11)
[2025-04-08] MEDS: SODIUM CHLORIDE 0.9% 500 ML INFUS.BAG IV ONE (01:11)
[2025-04-08 01:19] LABS: MCHC 32.1 g/dl (32.2-35.5); MEAN CELL VOLUME 87.3 fl (79.4-94.8); MEAN PLT VOLUME 10.2 fl (9.4-12.3); RDW 12.0 % (12.1-16.8)
[2025-04-08 01:21] LABS: EPI CELLS 8 /uL (0-25.1); HYALINE CASTS 1 /uL (0-3.1); URINE APPEARANCE CLEAR; URINE BACTERIA 42 /uL (0-1359); URINE BILIRUBIN NEGATIVE (NEGATIVE); URINE COLOR YELLOW; URINE GLUCOSE (UA) TRACE (NEGATIVE); URINE KETONE NEGATIVE (NEGATIVE); URINE LEUK ESTERASE NEGATIVE (NEGATIVE); URINE NITRITE NEGATIVE (NEGATIVE); URINE PROTEIN NEGATIVE (NEGATIVE); URINE RBC 9 /uL (0-23.9); URINE UROBILINOGEN 0.2 mg/dL (0.2-1.0); URINE WBC 36 /uL (0-25.8)
[2025-04-08 01:48] LABS: CO2 26.0 mmol/L (21-32); GLUCOSE,RANDOM 145.0 mg/dL (74-106)
[2025-04-08 01:51] LABS: CREATININE 1.4 mg/dL (0.55-1.3); SGOT/AST 13.0 U/L (15-37); SGPT/ALT 20.0 U/L (13-61)
[2025-04-08 01:52] LABS: TOT PROT 7.5 g/dl (6.4-8.2)
[2025-04-08 01:54] LABS: ALK PHOS 65.0 U/L (45-117)
[2025-04-08] MEDS ORDERED: KETOROLAC TROMETHAMINE 15 MG/ML VIAL ONE (03:50)
[2025-04-08] MEDS: KETOROLAC TROMETHAMINE 15 MG/ML VIAL IVPUSH ONE (03:56)
== END 2025-04-08 05:10 | disposition home or self-care (01) ==
LOC: JER 23:21
PROC: 3E033NZ Introduction of Analgesics, Hypnotics, Sedatives into Peripheral Vein, Percutaneous Approach (ICD-10-PCS; principal; 2025-04-08)
PROC: 3E0333Z Introduction of Anti-inflammatory into Peripheral Vein, Percutaneous Approach (ICD-10-PCS; 2025-04-08)
DX: D25.2 Subserosal leiomyoma of uterus (principal); R10.31 Right lower quadrant pain; R10.32 Left lower quadrant pain; R11.0 Nausea; R68.83 Chills (without fever); R19.7 Diarrhea, unspecified; R30.0 Dysuria
CPT/HCPCS: 36415; 74177-TC; 76830-TC; 80053; 81003; 83690; 83735; 84703; 85025; 87086; 99285-25